=== PATIENT | female | born 1965 | race Caucasian/White ===

== ENCOUNTER 2017-01-21 13:26 | Emergency (ER) | payer BC ==
--- NOTE | ~2017-01-21 | EKG ---
PATIENT: MIKEY BLOOM UNIT #: [id number] Ventricular Rate: 81 BPM Atrial Rate: 81 BPM P-R Interval: 170 ms QRS Duration: 80 ms Q-T Interval: 382 ms QTC Calculation(Bezet): 443 ms P [place]: 26 degrees Calculated R [place]: 2 degrees Calculated T [place]: 8 degrees Diagnosis Line: Normal sinus rhythm Diagnosis Line: Normal ECG Diagnosis Line: No previous ECGs available Diagnosis Line: Confirmed by LACY TIRADO MD ([id number]) on Diagnosis Line: 01/22/2017 8:22:16 AM INTERPRETING MD: CANDIDA CHAPPELL
--- NOTE | ~2017-01-21 | CR72 ---
[facility]. [facility] A Service of [facility] & [facility] RADIOLOGY TEXT RESULTS PATIENT: MIKEY BLOOM LOCATION: [facility] : 63 UNIT #: [id number] AGE: [address]: Alexandr Guerrero MD SEX: F ORDER DR: [id number] [facility] [address] [place], [place] [address] [id number] MR#: [id number] Acc #: [id number] NAME: MIKEY BLOOM : 1965 SEX: F STUDY DATE/TIME: 01/21/2017 14:07 UNIT: [facility] ROOM: STUDY DESCRIPTION: CR Chest Single View Portable Attending Physician: Alexandr Guerrero M.D. Ordering Physician: Keturah uY M.D. Primary Care Physician: Primary Care Physician No MEDICAL IMAGING REPORT This report is preliminary unless electronic signature is present EXAM Portable chest HISTORY Syncopal episode today, shortness of air. FINDINGS A single AP portable view of the chest shows both lungs to be clear. The heart is normal in size. The mediastinal contour is normal. No significant bone abnormalities are seen. IMPRESSION Normal portable chest. Dictated by... Danielle Schwarz M.D. THIS IS AN ELECTRONICALLY VERIFIED REPORT Danielle Schwarz M.D. at 01/22/2017 12:32 PM CHRISTOPHER/denis TD: 01/22/2017 01:53 JOB #: [id number] MEDICAL IMAGING REPORT Page 1 of 1 COPY
[2017-01-21 14:23] LABS: BASOPHIL# 0.1 X10e3 (0-0.3); BASOPHIL% 0.5 % (0-2.5); EOSINOPHIL# 0.1 X10e3 (0-0.7); EOSINOPHIL% 0.9 % (0.0-7.0); HEMATOCRIT 41.7 % (35.0-45.0); HEMOGLOBIN 13.7 gm/dL (12.0-16.0); LYMPHOCYTE# 3.6 X10e3 (1.0-3.5); LYMPHOCYTE% 36.8 % (17.0-45.0); MEAN CELL VOLUME 85.5 FL (83-96); MEAN CORPUSCULAR HEMOGLOBIN 28.2 PG (28-34); MEAN CORPUSCULAR HGB CONC 32.9 g/dL (30-36); MEAN PLATELET VOLUME 8.9 FL (6.5-11.5); MONOCYTE# 0.7 X10e3 (0-1.0); MONOCYTE% 7.2 % (3.0-12.0); NEUTROPHIL# 5.3 X10e3 (1.5-7.1); NEUTROPHIL% 54.6 % (40-75); PLATELET COUNT 256 X10e3 (140-420); RED BLOOD COUNT 4.88 X10e (3.90-5.30); RED CELL DISTRIBUTION WIDTH 13.5 % (11.0-15.5); WHITE BLOOD COUNT 9.7 X10e3 (4.0-10.5)
[2017-01-21 14:25] LABS: POC - CKMB 3.7 ng/mL (0.0-7.9); POC - TROPONIN <0.05 ng/mL (<=0.05)
[2017-01-21 14:25] LABS: DIFF IND NO
[2017-01-21 14:42] LABS: URINE SOURCE CLEAN CATCH
[2017-01-21 14:47] LABS: URINE APPEARANCE CLOUDY; URINE BILIRUBIN NEG (NEG); URINE BLOOD NEG (NEG); URINE COLOR YELLOW; URINE GLUCOSE NEG (NEG); URINE KETONE NEG (NEG); URINE LEUKOCYTE ESTERASE 1+ (NEG); URINE NITRATE NEG (NEG); URINE PROTEIN NEG (NEG); URINE SPECIFIC GRAVITY 1.016 (1.003-1.035); URINE UROBILINOGEN 0.2 MG/DL (NEG)
[2017-01-21 14:51] LABS: ALBUMIN SERUM 4.6 g/dL (3.5-5.0); ALCOHOL BLOOD <5 mg/dL (0); ALKALINE PHOSPHATASE 92 U/L (32-92); ALT (SGPT) 45 U/L (10-40); AST (SGOT) 30 U/L (10-42); BILIRUBIN, DIRECT 0.1 mg/dL (0.0-0.2); BILIRUBIN,INDIRECT 0.8 mg/dL (0.0-0.9); BILIRUBIN,TOTAL 0.9 mg/dL (0.2-2.0); BLOOD UREA NITROGEN 18 mg/dL (9-23); CALCIUM SERUM 9.6 mg/dL (8.4-10.2); CARBON DIOXIDE 27 mmol/L (22-31); CHLORIDE 101 mmol/L (100-111); GLOM FILT RATE Estimated 64.8 mL/min (>60); GLUCOSE FASTING 133 mg/dL (70-110); POTASSIUM 3.4 mmol/L (3.5-5.1); SODIUM 135 mmol/L (135-145)
[2017-01-21 14:53] LABS: PARTIAL THROMBOPLASTIN TIME 27.1 SECONDS (23.5-31.3); PROTHROMBIN TIME (PATIENT) 10.7 SECONDS (10.0-11.7)
[2017-01-21 14:53] LABS: CULTURE INDICATED? YES; URBCS1 AUWI 0-2 /[HPF] (0-2); URINE BACTERIA AUWI 2+ (NEGATIVE); URINE SQUAMOUS EPITHELIAL CELL MOD /[HPF]
[2017-01-21 14:57] LABS: AMPHETAMINE NEG (NEG); BARBITURATES NEG (NEG); BENZODIAZEPINES NEG (NEG); COCAINE NEG (NEG); MARIJUANA NEG (NEG); OPIATES POS (NEG); TRICYCLIC ANTIDEPRESSANTS POS (NEG); U METHADONE NEG (NEG)
[2017-01-21 16:03] LABS: POC - TROPONIN <0.05 ng/mL (<=0.05)
== END 2017-01-21 16:46 | disposition home or self-care (01) ==
LOC: CED 13:26
PROVIDERS: Emergency Medicine
DX: R55 Syncope and collapse (principal); E11.9 Type 2 diabetes mellitus without complications; I10 Essential (primary) hypertension
CPT/HCPCS: 36415; 71010; 80048; 80076; 80307; 81003; 82553; 84443; 84484; 84703; 85025; 85610; 85730; 87086; 93005; 96360; 96361; 99284; G0480

== ENCOUNTER 2017-03-22 06:58 | Emergency (ER) | payer OTHER, BC ==
[~2017-03-22] VITALS: Ht 182.9 cm; Wt 94.3 kg
== END 2017-03-22 07:25 | disposition home or self-care (01) ==
LOC: CED 06:58
DX: S13.4XXA Sprain of ligaments of cervical spine, initial encounter (principal); S46.911A Strain of unspecified muscle, fascia and tendon at shoulder and upper arm level, right arm, initial encounter; E11.9 Type 2 diabetes mellitus without complications; I10 Essential (primary) hypertension; V49.9XXA Car occupant (driver) (passenger) injured in unspecified traffic accident, initial encounter; Y92.410 Unspecified street and highway as the place of occurrence of the external cause
CPT/HCPCS: 99283